=== PATIENT | female | born 1980 | race Caucasian/White ===

== ENCOUNTER 2017-06-22 10:28 | Emergency (ER) | payer MEDICAID ==
[2015-02-03 11:07] VITALS: BMI 22.9
[~2017-06-22 10:28] MED LIST: NORCO 7.5/325 T1 TA1 PO; PHENERGAN25 M1 PO; ULTRAM50 MG PO
== END 2017-06-22 11:15 | disposition home or self-care (01) ==
LOC: D.ER 10:28
DX: M62.838 Other muscle spasm (principal); S29.012A Strain of muscle and tendon of back wall of thorax, initial encounter; X58.XXXA Exposure to other specified factors, initial encounter; Y93.89 Activity, other specified; Y92.019 Unspecified place in single-family (private) house as the place of occurrence of the external cause; J45.909 Unspecified asthma, uncomplicated